=== PATIENT | female | born 1980 | race American Indian/Alaskan Native ===

== ENCOUNTER 2018-06-07 02:28 | Emergency (ER) | payer SELFPAY ==
[2018-06-07 02:52] VITALS: BP 121/86
[2018-06-07] MEDS ORDERED: DELTASONE PO ONE (04:51)
[2018-06-07] MEDS ORDERED: PEPCID PO ONE (04:51)
[2018-06-07] MEDS ORDERED: DUONEB *Not for PRN Use IH ONE ×2 (04:51→05:38)
--- NOTE | 2018-06-07 05:13 | Emergency Department Report ---
ED Asthma HPI - General Chief Complaint: Upper Respiratory Infection Stated Complaint: URI SX Time Seen by Provider: 06/07/18 04:50 Source: patient Mode of arrival: Ambulatory Limitations: No Limitations - History of Present Illness Initial Comments: 38-year-old female past medical history asthma, COPD presents with complaint of 2 days of wheezing. Patient is awake alert and oriented 3. Fully lucid. Denies nausea vomiting fever or chills or productive cough. Patient states she was recently diagnosed with COPD. States she was using her asthma inhaler at home with minimal relief of pain. Patient is a smoker. Denies any personal history of intubations. Patient denies any chest pain. Speaking in full sentences without audible wheezing or stridor. MD Complaint: shortness of breath, wheezing Onset/Timin -: days(s) Asthma History: childhood onset Severity: moderate Context: smoke exposure Treatments Prior to Arrival: inhaled bronchodilator - Related Data Current Asthma Therapy: inhaled bronchodilator Previous Rx's Medication Instructions Recorded Last Taken Type Amoxicillin [Amoxicillin TAB] 875 mg PO BID #20 tablet 02/03/15 Unknown Rx Fluticasone [Flonase] 1 spray NS QDAY #1 bottle 02/03/15 Unknown Rx traMADol [Ultram 50 MG tab] 50 mg PO Q6HR PRN #14 tablet 02/03/15 Unknown Rx ALBUTEROL NEB's [Proventil 0.083% 2.5 mg IH Q4H PRN #1 box 06/07/18 Unknown Rx NEBS] Albuterol Sulfate [Ventolin Hfa] 1 puff IH Q4H PRN #1 hfa.aer.ad 06/07/18 Unknown Rx Azithromycin [Zithromax Z-YANET] 250 mg PO QDAY #1 pack 06/07/18 Unknown Rx Prednisone [predniSONE 5 mg (6-Day 5 mg PO .TAPER #1 tab.ds.pk 06/07/18 Unknown Rx Pack, 21 Tabs)] Allergies Allergy/AdvReac Type Severity Reaction Status Date / Time No Known Allergies Allergy Verified 06/07/18 02:47 ED Review of Systems ROS: Stated complaint: URI SX Other details as noted in HPI Constitutional: denies: chills, fever Eyes: denies: eye pain, eye discharge, vision change ENT: denies: ear pain, throat pain Respiratory: wheezing. denies: cough, shortness of breath Cardiovascular: denies: chest pain, palpitations Endocrine: no symptoms reported Gastrointestinal: denies: abdominal pain, nausea, diarrhea Genitourinary: denies: urgency, dysuria, discharge Musculoskeletal: denies: back pain, joint swelling, arthralgia Skin: denies: rash, lesions Neurological: denies: headache, weakness, paresthesias Psychiatric: denies: anxiety, depression Hematological/Lymphatic: denies: easy bleeding, easy bruising ED Past Medical Hx - Past Medical History Hx Asthma: Yes (bronchitis) - Surgical History Hx Appendectomy: Yes Additional Surgical History: tubal ligation - Social History Smoking Status: Current Every Day Smoker Substance Use Type: Alcohol - Medications Home Medications: Home Medications Medication Instructions Recorded Confirmed Last Taken Type Amoxicillin [Amoxicillin TAB] 875 mg PO BID #20 tablet 02/03/15 Unknown Rx Fluticasone [Flonase] 1 spray NS QDAY #1 bottle 02/03/15 Unknown Rx traMADol [Ultram 50 MG tab] 50 mg PO Q6HR PRN #14 tablet 02/03/15 Unknown Rx ALBUTEROL NEB's [Proventil 0.083% 2.5 mg IH Q4H PRN #1 box 06/07/18 Unknown Rx NEBS] Albuterol Sulfate [Ventolin Hfa] 1 puff IH Q4H PRN #1 hfa.aer.ad 06/07/18 Unknown Rx Azithromycin [Zithromax Z-YANET] 250 mg PO QDAY #1 pack 06/07/18 Unknown Rx Prednisone [predniSONE 5 mg (6-Day 5 mg PO .TAPER #1 tab.ds.pk 06/07/18 Unknown Rx Pack, 21 Tabs)] ED Physical Exam - General Limitations: No Limitations General appearance: alert, in no apparent distress - Head Head exam: Present: atraumatic, normocephalic - Eye Eye exam: Present: normal appearance, PERRL, EOMI - ENT ENT exam: Present: mucous membranes moist - Neck Neck exam: Present: normal inspection - Respiratory Respiratory exam: Present: wheezes (slight wheezing on exam). Absent: respiratory distress - Cardiovascular Cardiovascular Exam: Present: regular rate, normal rhythm. Absent: systolic murmur, diastolic murmur, rubs, gallop - GI/Abdominal GI/Abdominal exam: Present: soft, normal bowel sounds - Extremities Exam Extremities exam: Present: normal inspection - Back Exam Back exam: Present: normal inspection - Neurological Exam Neurological exam: Present: alert, oriented X3 - Psychiatric Psychiatric exam: Present: normal affect, normal mood - Skin Skin exam: Present: warm, dry, intact, normal color. Absent: rash ED Course Vital Signs 06/07/18 06/07/18 06/07/18 02:47 05:01 05:16 Temperature 98.0 F Pulse Rate 80 Pulse Rate [ 87 89 Bilateral Throughout] Respiratory 18 Rate Respiratory 18 18 Rate [Bilateral Throughout] Blood Pressure 121/86 O2 Sat by Pulse 97 Oximetry ED Medical Decision Making - Medical Decision Making A/P: Asthma exacerbation, reactive airway disease, mild copd exacerbation 1- duoneb neb fluid, albuterol inhaler. Patient recently diagnosed COPD, will also add azithromycin to regimen of treatment 2- prednisone coourse 3- normal vital signs, patient does not have any audible wheezing or stridor or retractions before discharge. 4- patient to follow up with primary care doctor. States she does not have a nebulizer, I will prescribe her one and advised her that she can also buy a nebulizer without a prescription from pharmacy. 5- advised patient that continued smoking behavior is little result in worsening symptoms over time and complications from COPD patient stated she understood the risks of smoking Critical care attestation.: If time is entered above; I have spent that time in minutes in the direct care of this critically ill patient, excluding procedure time. ED Disposition Clinical Impression: COPD exacerbation Asthma Qualifiers: Asthma severity: mild Asthma persistence: intermittent Asthma complication type : unspecified Qualified Code(s): J45.20 - Mild intermittent asthma, uncomplicated Reactive airway disease with wheezing Qualifiers: Asthma severity: mild Asthma persistence: intermittent Asthma complication type : uncomplicated Qualified Code(s): J45.20 - Mild intermittent asthma, uncomplicated Disposition: DC- TO HOME OR SELFCARE Is pt being admited?: No Does the pt Need Aspirin: No Condition: Stable Instructions: Asthma (ED), Chronic Obstructive Pulmonary Disease (ED) Prescriptions: ALBUTEROL NEB's [Proventil 0.083% NEBS] 2.5 mg IH Q4H PRN #1 box PRN Reason: Wheezing Albuterol Sulfate [Ventolin Hfa] 1 puff IH Q4H PRN #1 hfa.aer.ad PRN Reason: Wheezing Azithromycin [Zithromax Z-YANET] 250 mg PO QDAY #1 pack Prednisone [predniSONE 5 mg (6-Day Pack, 21 Tabs)] 5 mg PO .TAPER #1 tab.ds.pk Referrals: [facility] [Provider Group] - 3-5 Days Time of Disposition: 05:41
== END 2018-06-07 06:16 | disposition home or self-care (01) ==
LOC: ED 02:28
DX: J44.1 Chronic obstructive pulmonary disease with (acute) exacerbation (principal); J45.20 Mild intermittent asthma, uncomplicated; F17.200 Nicotine dependence, unspecified, uncomplicated; Z98.51 Tubal ligation status; Z90.49 Acquired absence of other specified parts of digestive tract
CPT/HCPCS: 94640; 99283; J7512